=== PATIENT | female | born 1935 | race Caucasian/White ===

== ENCOUNTER 2016-10-15 15:08 | Inpatient (IN) ==
[2016-10-15 17:13] LABS: BASO% 0.1 % (0.0-0.8); HEMATOCRIT 45.1 % (37.0-47.0); HEMOGLOBIN 14.8 g/dL (12.0-16.0); IMM GRAN# 0.07 X1000 (0.0-0.04); IMM GRAN% 0.3 % (0.0-0.5); LYMPH# 0.96 X1000 (1.2-3.4); LYMPH% 4.6 % (20.5-51.1); MANUAL DIFF NEEDED? NO; MCH 28.8 PG (27-31); MCHC 32.8 g/dL (33-37); MCV 87.7 FL (81-99); MONO# 0.85 X1000 (0.11-0.59); MONO% 4.1 % (1.7-9.3); MPV 12.5 FL (7.4-10.4); NEUT% 90.9 % (42.2-75.2); PLT 177 X1000 (130-400); RBC 5.14 XMIL (4.2-5.4)
[2016-10-15 17:28] LABS: ALBUMIN 3.7 g/dL (3.5-5.0); POTASSIUM 3.8 mmol/L (3.5-5.1); TOTAL BILIRUBIN 0.81 mg/dL (0.20-1.00); TOTAL PROTEIN 7.3 g/dL (6.3-8.3)
[2016-10-15 17:33] LABS: URINE SOURCE CATH
[2016-10-15 17:40] LABS: BILIRUBIN URINE NEGATIVE (NEGATIVE); BLOOD URINE SMALL (NEGATIVE); COLOR YELLOW; GLUCOSE URINE >1000 mg/dL (NEGATIVE); LEUKOCYTES URINE SMALL (NEGATIVE); NITRITE URINE NEGATIVE (NEGATIVE); PROTEIN URINE 300 mg/dL (NEGATIVE); TURBIDITY URINE CLEAR (CLEAR); UROBILINOGEN URINE NORMAL (NORMAL)
[2016-10-15 17:41] LABS: URINE MICRO REVIEW NEEDED? YES
[2016-10-15 17:46] LABS: UR EPITHELIAL CELLS <10 /HPF (<10); URINE BACTERIA 1+ /HPF; URINE CULTURE NEEDED? YES; URINE RBC <10 /HPF (<10); URINE WBC TNTC /HPF (<10)
--- NOTE | 2016-10-15 17:48 | PROVIDER DOCUMENTATION ---
This chart was entered by Columba Anaya Scribe, acting as scribe for Dk Lopez MD. HPI-General Adult - General Chief Complaint: Return/Recheck Stated Complaint: UTI SX Time Seen by Provider: 10/15/16 15:28 Source: patient Allergies/Adverse Reactions: Patient Allergies Allergy/AdvReac Type Severity Reaction Status Date / Time No Known Allergies Allergy Verified 10/15/16 15:39 Home Medications: Home Medication List Medication Instructions Recorded Confirmed Last Taken Type ATORVAstatin [Lipitor] 10 mg PO HS 04/17/13 10/15/16 10/14/16 21:00 History Levothyroxine [Synthroid] 75 microgm PO DAILY 04/17/13 10/15/16 10/15/16 08:00 History Insulin Glargine [Lantus] 28 unit SUBQ QAM #5 insuln.pen 10/17/15 10/15/16 Unknown Rx Losartan [Cozaar] 50 mg PO QHS #30 tablet 10/17/15 10/15/16 10/14/16 21:00 Rx Aspirin 81 mg PO DAILY 06/02/16 10/15/16 10/14/16 21:00 History Nitrofurantoin Ocean/Macrocryst 100 mg PO BID #14 capsule 10/14/16 10/15/1610/15 08:00 Rx [Macrobid] Famotidine [Pepcid] 20 mg PO HS 10/15/16 10/15/16 10/14/16 21:00 History - History of Present Illness -Gen Adult Nature of Presenting Problems: Pt is a 80 y/o F presents to the ED with altered mental status. Pt's daughter states Pt usually gets violent and vocally loud when she has a UTI. Pt's daughter states was seen in ED last night for same symptoms and prescribed Macrobid. Pt's daughter states has not improved. Pt's daughter denies Pt stating hematuria and dysuria. Pt's daughter states hx of dementia. Location of Pain/Injury: reports: none Pain Radiation: reports: no radiation Quality of Pain: reports: none Severity: reports: mild Onset/Duration: reports: 2 days ago Timing: reports: still present Context/Activities at Onset: reports: light activity Modifying Factors: improves with: nothing Associated Symptoms: reports: other (AMS). denies: anxiety, arm pain, back/ neck pain, chest pain, constipation, cough, diaphoresis, diarrhea, dizziness, EENT symptoms, fatigue, fever/chills, genitourinary problems, headaches, heartburn, joint pain, loss of appetite, malaise, muscle aches, sinus congestion /drainage, nausea, rash, seizure, shortness of breath, sensory/motor loss, pain with inspiration, swelling/mass in abdomen, syncope, vomiting, weakness, trouble walking Similar Symptoms Previously?: Yes (present since yesterday ) Recently seen or treated by another doctor?: Yes (seen in ED yesterday ) Review of Systems - Adult - REVIEW OF SYSTEMS - ADULT Constitutional: reports: no symptoms reported Eyes: reports: no symptoms reported Ears, Nose, Mouth & Throat: reports: no symptoms reported Cardiovascular: reports: no symptoms reported Respiratory: reports: no symptoms reported Gastrointestinal: reports: no symptoms reported Genitourinary: reports: no symptoms reported Musculoskeletal: reports: no symptoms reported Integumentary: reports: no symptoms reported Neurological: reports: other (AMS). denies: dizziness/vertigo, headache/ migraines, numbness, seizure, syncope Psychiatric: reports: no symptoms reported Endocrine: reports: no symptoms reported Hematologic/Lymphatic: reports: no symptoms reported Allergic/Immunologic: reports: no symptoms reported All Other Systems: Reviewed and Negative Past History - Adult - PAST MEDICAL HISTORY-ADULT Review of Records: reports: Nursing Assessment Review, Medications Reviewed, Social history reviewed & non-contributory. Major Childhood Illnesses: reports: denies history Cardiovascular: reports: CAD, CHF, HTN, hyperlipidemia Respiratory: reports: denies history Gastrointestinal: reports: denies history Obstetrical/Gynecological: reports: denies history Genitourinary: reports: denies history Musculoskeletal: reports: arthritis Neurological: reports: dementia Endocrine/Immune: reports: Diabetes, thyroid disorder (hypo) Other Conditions: reports: denies history - PRIOR SURGERIES/PROCEDURES Surgical/Procedure History: reports: appendectomy, CABG, cholecystectomy, cardiac stent - PRIOR HOSPITALIZATIONS Prior Hospitalizations: reports: for other non-related - IMMUNIZATION STATUS Childhood Immunizations: See Nurse Assessment Flu Vaccine: See Nurse Assessment - FAMILY HISTORY Family History: reviewed, not pertinent - SOCIAL HISTORY Smoking: quit less than 1 year, cigarettes Provider spent 3-5 mins advising pt. on dangers of tobacco.: Discussed manners to quit use, and f/u contacts for add'l counseling. Substance Use: denies Living Situation: family Physical Exam-General - PHYSICAL EXAM-ADULT Initial Vital Signs Reviewed: Yes - CONSTITUTIONAL General Appearance: alert, no apparent distress, other (confused). negative: lethargic, slow to respond - EYES Eyes: PERRL/EOMI, pink conjunctivae. negative: pale conjunctivae, sunken eyes - HEAD, EARS, NOSE, MOUTH & THROAT HENMT: normal ENT inspection. negative: angioedema, hearing deficit - NECK Neck: normal inspection. negative: lymphadenopathy, tender lateral - RESPIRATORY Respiratory: chest non-tender, lungs clear, normal breath sounds. negative: crackles, wheezing - CARDIOVASCULAR Cardiovascular: normal peripheral pulses, regular rate, rhythm. negative: tachycardia, systolic murmur - GASTROINTESTINAL (ABDOMEN) Abdominal Exam: normal bowel sounds, non tender, soft. negative: distended, guarding, hernia - LYMPHATIC Lymphatic: no adenopathy. negative: enlargement, streaking - MUSCULOSKELETAL Back Exam: normal inspection. negative: ecchymosis, swelling Extremity: normal range of motion, normal inspection. negative: deformity, erythema, swelling - SKIN Integumentary: normal color, normal turgor, warm/dry. negative: diaphoresis, ecchymosis, erythema - NEUROLOGIC Neurologic: other (confused). negative: aphasia, facial droop - PSYCHIATRIC Psych/Mental Status: other (confused). negative: oriented x 3, paranoid, tearful Progress - PLAN OF CARE/RESULTS Progress/Plan/Lab Results: Vital Signs - 8 hr 10/15/16 15:14 Temperature 98.4 F Pulse Rate 101 H Respiratory Rate 20 Blood Pressure 149/70 O2 Sat by Pulse Oximetry 92 L - CONSULTS/PCP/HOSPITALIST Notification #1 *Consult/PCP/Hospitalist*: JUN Fuentes Time Discussed: 16:07 Reason/Comments: Dr. Lopez consulted with JUN Fuentes about PT Consult Disposition: other (Pt is Dr. Renner's Pt. Call for who is facility operations manager.) #2 Consult: Dr. Parsons Time Discussed: 16:15 Reason/Comments: Dr. Lopez consulted with Dr. Parsons about Pt Consult Disposition: Will see in ED, Admit Departure - Departure Date of Disposition Decision: 10/15/16 Time of Disposition Decision: 16:18 DIAGNOSIS: UTI (urinary tract infection) Disposition: ADMITTED INPATIENT 09 Certified Medical Emergency: Emergent Condition: Stable Referrals and Follow-Ups: Osmany Renner MD [Primary Care Provider] - - Critical Care Note This patient required my direct & personal management of CC.: No Attestation - Physician/ FRANK Attestation Patient care was provided by Advanced Practice Provider:: No The physician spent face to face time with patient:: Yes Advanced Practice Provider documentation review:: Supervising physician onsite and consulted in the evaluation and care of this patient. The physician did have a face to face encounter with the patient. This chart was documented by the indicated scribe, (Columba Anaya Scribe) and accurately reflects the services I performed and decisions made by me, Dk Lopez MD, as attested by the provider's signature.
[2016-10-15 17:51] LABS: URINE CASTS NONE SEEN; URINE CRYSTALS NONE SEEN; URINE SMALL ROUND CELLS TRANS PRESENT
[2016-10-15] MEDS ORDERED: ZOFRAN PO PRN (18:57)
[2016-10-15] MEDS ORDERED: ROCEPHIN 1 GM in NS 50 ML IV SCH (18:57)
--- NOTE | 2016-10-15 18:57 | HISTORY AND PHYSICAL ---
CHIEF COMPLAINT: Confusion, agitation and slight combativeness. PRESENT ILLNESS: Mrs. Colindres is a 80-year-old, white female with a long history of dementia, who was brought to the emergency room yesterday by her and daughter, who reported that she seemed to have altered mental status and that previously this has occurred in the setting of urinary tract infections. Physical examination was unremarkable. She was afebrile and was quite animated although somewhat confused. Physical examination was unremarkable and urinalysis showed a few white blood cells, and she was begun on Macrodantin. A urine culture was sent to the lab, but the results are still pending. She had a dose of Macrodantin last night and one this morning, and her family brought her back because of increasing combativeness where she was hitting at her and she seemed somewhat weaker than usual. They did not report any nausea or vomiting. She has eaten almost nothing today, but has not complained of any dysuria, headache or nausea. PAST MEDICAL HISTORY: She has long history of type 2 diabetes mellitus treated with insulin with chronic hyperglycemia and marginal compliance. She also has a history of essential hypertension, dyslipidemia, obesity, hypothyroidism, atherosclerotic cardiovascular disease, previous strokes, polyneuropathy felt to be due to the diabetes and the previously mentioned dementia. PAST SURGICAL HISTORY: Remarkable for cholecystectomy, 3 vessel coronary artery bypass grafting in 2009, previous appendectomy, cataract surgery and breast biopsies. HOME MEDICATION: Aspirin daily, atorvastatin 10 mg at bedtime, levothyroxine 88 mcg daily, famotidine 20 mg at bedtime, losartan 50 mg at bedtime, Lantus 28 units subcutaneous daily. ALLERGIES: She has no known drug allergies. FAMILY HISTORY: Positive for hypertension, heart disease and diabetes. REVIEW OF SYSTEMS: Obtained primarily from her and daughter. Up until today, she was eating well. No complaints of any headache, fever or chills. HEENT: No complaints. Respiratory: No shortness of breath, sputum production, cough or history of chronic lung disease. She smoked many years ago. Cardiovascular: No recent chest pain, angina and no history of congestive heart failure or valvular heart disease. No recent syncope pedal edema. GI: No history of diarrhea, constipation, vomiting, melena or bright red blood per rectum. : Frequent urinary tract infections. Earlier this year, she had an enterococcus resistant to many antibiotics, but recently she has had an E. coli and Klebsiella both sensitive to most antibiotics. These urinary tract infections are generally asymptomatic other than an exacerbation of her delirium. Neurologic: Questionable history of previous stroke. No history of seizures. Psychiatric: No history of depression. She has had a steady decline in her memory and behavior. At home she is able to walk from room to room easily and does not require assistive devices. She has previously taken Exelon patch and Namenda without apparent benefit, and these were stopped last year. PHYSICAL EXAMINATION: VITAL SIGNS: Temperature is 98.4 degrees, blood pressure 149/70, respirations 20, pulse is 101, O2 saturation is 92% on room air. GENERAL APPEARANCE: Alert talkative and moderately hypomanic elderly woman, who is very conversational, but slightly confused. She also seems quite emotionally labile and twice during the brief interview became very tearful for minimal if any reason. HEENT: Pupils equal, round, reactive to light. Extraocular movements intact. There is no visible evidence of trauma. Mucous membranes are moist. NECK: Supple with no adenopathy, JVD, thyromegaly or bruits. LUNGS: Clear to auscultation and percussion anteriorly and posteriorly. CARDIOVASCULAR: Regular rate and rhythm. Normal S1, S2. No S3, S4, murmurs. ABDOMEN: Soft, obese and nontender with active bowel sounds. There is no guarding or rebound tenderness. No masses are palpable. PELVIC AND RECTAL: Exams are omitted. EXTREMITIES: No cyanosis, clubbing, or edema. NEUROLOGIC: She is alert and talkative, but oriented to name only. She has slightly pressured speech. Emotionally labile going from quite happy and giggling to tearful several times. She moves all extremities on command and sits upright on the edge of the stretcher without any support or assistance. Cranial nerve examination is unremarkable. DATABASE: White blood count 42798, hemoglobin, hematocrit and platelet count are normal. Electrolytes are normal. BUN 18, creatinine 1.3, glucose 294. Urinalysis positive for protein and glucose, negative for nitrite, too numerous to count WBCs. ASSESSMENT: 1. Probable acute pyelonephritis with elevated white blood count and obvious urinary tract infection. 2. Exacerbation of dementia with some delirium due to her infection. Her emotional lability brings to mind the possibility of frontotemporal dementia or pseudobulbar affect related to Alzheimer disease. 3. Type 2 diabetes mellitus, limited control. 4. Essential hypertension, well controlled. 5. Hypothyroidism, replaced. TREATMENT PLAN: Blood cultures will be obtained. I have ordered Rocephin 1 g intravenously daily, first dose tonight. I think with her dementia she will not need IV fluids as she does not appear dehydrated and the fewer tethers we keep on her, the better she will do. We will try to maintain her mobility and get her up to the bedside chair 3 times a day for meals. Dr. Renner should be here tomorrow to assume responsibility for her care. cc: Hung Parsons MD
[2016-10-15] MEDS: PEPCID PO SCH (20:39)
[2016-10-15] MEDS: COZAAR PO SCH (20:39)
[2016-10-15] MEDS: TYLENOL PO PRN (20:39)
[2016-10-15] MEDS: LIPITOR PO SCH (20:39)
[2016-10-15] MEDS: LOVENOX SUBQ SCH (20:39)
[2016-10-16] MEDS: SYNTHROID PO SCH (06:22)
[2016-10-16] MEDS ORDERED: INSULIN PEN NEEDLES ONE (06:29)
[2016-10-16 06:31] LABS: HEMATOCRIT 41.6 % (37.0-47.0); HEMOGLOBIN 13.7 g/dL (12.0-16.0); MCH 29.8 PG (27-31); MCHC 32.9 g/dL (33-37); MCV 90.6 FL (81-99); MPV 12.5 FL (7.4-10.4); RBC 4.59 XMIL (4.2-5.4)
[2016-10-16] MEDS ORDERED: LANTUS SUBQ SCH ×2 (09:00)
--- NOTE | 2016-10-16 09:13 | PROGRESS NOTE ---
DATE: 10/16/2016 SUBJECTIVE: The patient's is present. He says that "her mind is gone." The patient voices no complaints and the feels that she is getting good care. VITAL SIGNS: Temperature 98.3, pulse 71, respirations 16, blood pressure 148/62. EXAM: General: She is a well-developed, white female, in no acute distress. She is alert but makes inappropriate comments and uses foul language fairly easily. Lungs: Clear. Cardiovascular: Regular. LABORATORIES: Blood sugars are running up in general in the mid-200s. White cell count is down to 11,000. ASSESSMENT AND PLAN: 1. The patient's urinary tract infection has been treated. We do not have microbiology isolation yet but will adjust antibiotics as necessary. 2. The patient's diabetes is poorly controlled but has been for quite some time. We are limited by what we can access for her on outpatient basis and the dynamic between the and is such that compliance is highly questionable at all times. 3. I plan to add a little Donepezil and some dextromethorphan for the patient's dementia. I agree with Dr. Parsons's assessment that she has at least some degree of frontal temporal disturbance within the realm of dementia. cc: Osmany Renner MD
[2016-10-16] MEDS: ASPIRIN PO SCH (09:50)
[2016-10-16] MEDS: DELSYM LIQUID PO SCH ×2 (09:50→23:12)
[2016-10-16] MEDS: GEODON IM PRN (13:42)
[2016-10-16] MEDS: STERILE WATER INJ. INJ PRN (13:42)
[2016-10-16] MEDS: HUMALOG SUBQ SCH (16:00)
[2016-10-16] MEDS: PEPCID PO SCH (23:10)
[2016-10-16] MEDS: ARICEPT PO SCH (23:10)
[2016-10-16] MEDS: OMNICEF PO SCH (23:10)
[2016-10-16] MEDS: COZAAR PO SCH (23:11)
[2016-10-16] MEDS: LIPITOR PO SCH (23:11)
[2016-10-17] MEDS: HUMALOG SUBQ SCH ×5 (01:33→22:07)
[2016-10-17] MEDS: LOVENOX SUBQ SCH ×2 (03:13→22:06)
[2016-10-17] MEDS: COZAAR PO SCH ×2 (03:20→22:06)
[2016-10-17] MEDS: PEPCID PO SCH ×2 (03:20→22:06)
[2016-10-17] MEDS: LIPITOR PO SCH ×2 (03:21→22:06)
[2016-10-17] MEDS: ARICEPT PO SCH (03:21)
[2016-10-17] MEDS: SYNTHROID PO SCH (06:17)
[2016-10-17] MEDS: DIFLUCAN PO SCH (08:39)
[2016-10-17] MEDS: OMNICEF PO SCH ×2 (08:39→22:06)
[2016-10-17] MEDS: LANTUS SUBQ SCH ×3 (08:39→22:07)
[2016-10-17] MEDS: ASPIRIN PO SCH (08:39)
[2016-10-17] MEDS: DELSYM LIQUID PO SCH ×2 (08:40→22:05)
[2016-10-17] MEDS: PROZAC PO SCH (13:17)
--- NOTE | 2016-10-17 13:29 | PROGRESS NOTE ---
DATE: 10/17/2016 SUBJECTIVE: The patient states that she wants to go home. Yesterday I was called multiple times because she pulled out her IV twice and was in the halls. She was also using foul language appropriate. We gave her some Geodon and she apparently settled down. I spoke with the patient's daughter and my staff spoke with son-in-law about how aggressive and loud and sometimes sexually inappropriate she has been. I had a long discussion with the daughter about her frontotemporal dementia and what might or might not work or help in her situation. They expressed a wish to proceed with other treatments. OBJECTIVE: Vital Signs: 98.0, 82, 20, 184/81 left arm. PHYSICAL EXAMINATION: General: She is awake, alert, but somewhat inappropriate and makes responses that may or may not be relevant to the question asked. Lungs: Clear. Cardiovascular: Regular. LABORATORIES: Patient's blood sugars have been hanging in the 200s. ASSESSMENT/PLAN: 1. The patient's urinary tract infection has been treated with oral cefdinir since she pulled out her IVs. 2. The patient's diabetes is poorly controlled. We have maintained a sliding scale and a single dose of Lantus in the morning to see how her control was. Apparently, she was supposed to be getting 2 injections of Lantus at home and the patient's stated that she had been getting this. I find that hard to believe because she is coming under reasonable control with a lower dose of insulin as prescribed for home use. I suspect the 2nd shot during the day is left off many times. I have made adjustments in her overall regimen and will monitor their effect. I told the patient that we need to get her sugar under control prior to discharge. 3. The patient's frontotemporal dementia is going to be difficult to treat. After reviewing several articles online it would appear that donepezil and medications of that type are minimally or even questionably effective and in some cases may worsen behaviors. Suggestions for SSRI use to control impulsive behavior for the most relevant suggestions present. As a result, I have started her on trazodone at night for sleep and Prozac 10 mg in the morning. We will see what type of affect this has. cc: Osmany Renner MD
[2016-10-17] MEDS: GEODON IM PRN (17:41)
[2016-10-17] MEDS: STERILE WATER INJ. INJ PRN (17:41)
[2016-10-17] MEDS ORDERED: LANTUS SUBQ SCH (21:00)
[2016-10-17] MEDS: DESYREL PO SCH (22:06)
[2016-10-18] MEDS: TYLENOL PO PRN (04:01)
[2016-10-18 06:19] LABS: MANUAL DIFF NEEDED? NO
[2016-10-18 06:38] LABS: BASO% 0.5 % (0.0-0.8); EOS# 0.14 X1000 (0.0-0.7); EOS% 2.3 % (0.0-10.0); HEMATOCRIT 41.7 % (37.0-47.0); HEMOGLOBIN 13.9 g/dL (12.0-16.0); LYMPH# 1.85 X1000 (1.2-3.4); LYMPH% 30.2 % (20.5-51.1); MCH 29.4 PG (27-31); MCHC 33.3 g/dL (33-37); MCV 88.3 FL (81-99); MONO# 0.68 X1000 (0.11-0.59); MONO% 11.1 % (1.7-9.3); MPV 12.4 FL (7.4-10.4); NEUT% 55.9 % (42.2-75.2); PLT 162 X1000 (130-400); RBC 4.72 XMIL (4.2-5.4)
[2016-10-18] MEDS: HUMALOG SUBQ SCH ×4 (06:47→22:12)
[2016-10-18] MEDS: SYNTHROID PO SCH (06:48)
[2016-10-18 07:03] LABS: CALCIUM 8.6 mg/dL (8.8-10.2); POTASSIUM 3.6 mmol/L (3.5-5.1)
[2016-10-18] MEDS: ASPIRIN PO SCH (10:54)
[2016-10-18] MEDS: PROZAC PO SCH (10:54)
[2016-10-18] MEDS: DIFLUCAN PO SCH (10:54)
[2016-10-18] MEDS: DELSYM LIQUID PO SCH ×2 (10:54→22:11)
[2016-10-18] MEDS: LANTUS SUBQ SCH ×2 (10:54→22:11)
[2016-10-18] MEDS: OMNICEF PO SCH ×2 (10:55→22:10)
[2016-10-18] MEDS: GEODON IM PRN (10:57)
[2016-10-18] MEDS ORDERED: PROZAC PO SCH (20:28)
--- NOTE | 2016-10-18 21:05 | PROGRESS NOTE ---
DATE: 10/18/2016 SUBJECTIVE: The patient is again along during the morning when I interviewed her. She had no complaints. I had a long discussion with the nurse about insulin. The claims to have been giving her 2 shots daily, but she is requiring considerably less insulin than is prescribed at home and seems to be under reasonable control, albeit in a bit high. I wonder about whether she has ever getting that 2nd shock. The patient on the other hand insists that she gets her fingerstick checked in one finger and her gives the insulin in another finger. She is steadfast in this assertion and I wanted to talk to the geovany, but when I called the patient's room, no one answered. OBJECTIVE: Vital signs: Temperature 97.9, pulse 69, respiratory rate 21, blood pressure 183/78, 93% saturated on room air. General: Patient is obese. She is in no distress. She is alert, oriented. She expresses a desire to go home. Lungs: Clear to auscultation. Cardiovascular: Regular with rare ectopy. Extremities: Show no peripheral edema. LABORATORY: White cell count was 6.1, hematocrit 42, BUN 17, creatinine 1.2. Glucose on her laboratory draw was 107. During the day it has been in the low 200s almost the entire time. ASSESSMENT AND PLAN: 1. The patient's urinary tract infection seems to be clearing up nicely. She does not have a white count or fever. She is taking oral medications. 2. The patient's blood pressure is notably increased, and I have increased her losartan to try and combat this a little bit more effectively. 3. Patient's diabetic control is marginal, but acceptable at this point. I will need to speak with her about whether he is giving the 2nd shot during the day or not. 4. The patient's behavioral disturbances and frontotemporal dementia have been addressed with the addition of fluoxetine and trazodone. She seemed to tolerate this well today. I plan to increase the Prozac and keep the trazodone the same. In only rare circumstances are antipsychotics used in these cases and the efficacy of typical dementia-type drugs are questionable and may even cause harm. cc: Osmany Renner MD
[2016-10-18] MEDS: LOVENOX SUBQ SCH (22:10)
[2016-10-18] MEDS: PEPCID PO SCH (22:10)
[2016-10-18] MEDS: LIPITOR PO SCH (22:10)
[2016-10-18] MEDS: DESYREL PO SCH (22:10)
[2016-10-18] MEDS: COZAAR PO SCH (22:10)
[2016-10-19] MEDS: SYNTHROID PO SCH (06:31)
[2016-10-19] MEDS: HUMALOG SUBQ SCH ×2 (06:33→11:42)
[2016-10-19] MEDS ORDERED: INSULIN PEN NEEDLES ONE (07:19)
[2016-10-19 08:48] VITALS: BP 118/63
[2016-10-19] MEDS ORDERED: LANTUS SUBQ SCH (08:51)
[2016-10-19] MEDS: OMNICEF PO SCH (09:41)
[2016-10-19] MEDS: DELSYM LIQUID PO SCH (09:41)
[2016-10-19] MEDS: ASPIRIN PO SCH (09:41)
[2016-10-19] MEDS: DIFLUCAN PO SCH (09:42)
--- NOTE | 2016-10-20 09:47 | DISCHARGE SUMMARY ---
ADMISSION DATE: 10/15/2016 DISCHARGE DATE: 10/19/2016 DISCHARGE DIAGNOSES: 1. Urinary tract infection, not otherwise specified. 2. Diabetes mellitus, out of control. 3. Frontotemporal dementia. 4. Hypertension. HOSPITAL COURSE: This 80-year-old, white female, with frontotemporal dementia, presented with worsening behavior. She was found to have urinary tract infection which is not uncommon for her. In the past she has had severe UTIs, with acute renal failure. At this time her renal function was preserved. She was admitted to the hospital and started on antibiotics. Her behaviors have been increasingly worse including shouting, cursing, and inappropriate sexual commentary and action. We were hopeful that alleviation of her urinary tract infection would be enough to get her back to her baseline, which is more of a pleasant dementia. I spoke with multiple patient family members and decided to try her on trazodone and fluoxetine. Review of the current literature showed that typical dementia type drugs could have no effect or even adverse effect on behaviors and they are rarely used. Antipsychotics are rarely used in this particular situation as well. It will take a number weeks to note full effect of the additional medications for her behavior control. Urine culture did not grow out anything, but she was treated with Rocephin initially. She pulled out her IV two times and then we switched her over to cefdinir, which she tolerated well. She was afebrile, at the time of discharge and her white cell count returned to normal. The patient's diabetes was reasonably well controlled in the hospital. It is interesting that the patient's stated she was getting basically 45 units twice a day. In the hospital she was only requiring 40 units plus in the morning and 20 in the afternoon and was still staying right around the 200 level. Wonder if this had to do with dietary compliance or proper administration of the shots. I discussed this with the patient's by phone on the night prior to discharge. We eventually changed her medications to 50 units of Lantus in the morning and 20 at night. The patient has 5 more days of Cefdinir, and her prescriptions for fluoxetine and trazodone have been electronically submitted. The patient is to follow up in 2 weeks to review her progress. cc: Osmany Renner MD
== END 2016-10-19 14:26 | disposition home health service (06) ==
LOC: ED 15:08 → 3N 18:34
PROVIDERS: ADMIT Internal Medicine; ATTEND Internal Medicine